=== PATIENT | male | born 1975 | race Caucasian/White ===

== ENCOUNTER 2016-12-05 16:06 | Emergency (ER) | payer BC, OTHER ==
[~2016-12-05] VITALS: Ht 180.3 cm; Wt 86.5 kg
[2016-12-05 16:11] VITALS: Ht 180.3 cm; Wt 86.5 kg
--- NOTE | 2016-12-05 16:59 | ERD ---
ER Documentation Chief Complaint Date/Time DATE: 12/05/16 TIME: 16:52 Chief Complaint SORE THROAT AND RINGING IN EARS X 3 MONTHS HPI 41-year-old male patient with no significant past medical history presents the ED complaining of sore throat and ringing in the ears since 3 months ago. States that he did have a migraine and took Advil relief of his symptoms. Denies any head trauma. Denies any loss of consciousness. Denies any chest pain , shortness of breath, dizziness, abdominal pain, nausea, vomiting. Denies any dysphagia, odynophagia, fever, chills, neck pain. ROS All systems reviewed and are negative except as per history of present illness. Allergies Allergies: Coded Allergies: No Known Allergy (Unverified , 12/05/16) PMhx/Soc Medical and Surgical Hx: pt denies Medical Hx, pt denies Surgical Hx Hx Alcohol Use: No Physical Exam Vitals Vital Signs Date Time Temp Pulse Resp B/P Pulse Ox O2 Delivery O2 Flow Rate FiO2 12/05/16 16:11 99.0 100 20 177/98 99 Physical Exam Const: Drl-[id number]-ycawyecxn, well-nourished. In no acute distress. Head: Atraumatic, normocephalic Eyes: Normal Conjunctiva without injection. No purulent discharge. PERRL. EOMI ENT: Normal external ear. Ear canal without erythema. Tympanic membrane pearly mohamud without effusion or bulging. Nasal canal clear with normal turbinates. Moist oropharynx without tonsillar exudates. Non-erythematous pharynx. Uvula midline. No drooling. No trismus. Neck: Full range of motion. No meningismus. No cervical lymphadenopathy. Resp: Clear to auscultation bilaterally. No wheezing, rhonchi, rales, or crackles. No accessory muscle use. No retractions. Cardio: Regular rate and rhythm. No murmurs, rubs or gallops. Abd: Soft, non tender, non distended. Normal bowel sounds. No palpable masses. No rebound tenderness. No guarding. Skin: No petechiae or rashes Back: No midline tenderness. No CVA tenderness. Ext: No cyanosis, or edema. Neur: Awake and alert. Normal gait and coordination. Cranial nerves II-VII intact. Normal nose to finger exam. Muscle strength 5/5. Sensation intact. Psych: Normal Mood and Affect Procedures/MDM This is a 41-year-old male patient with no significant past medical history presents the ED complaining of sore throat and ringing in the ears that started intermittently 3 months ago. Patient is afebrile and nontoxic-appearing. Patient's blood pressure was noted to be 177/98. Patient's blood pressure was elevated (>120/80) but appears stable without evidence of hypertension emergency or urgency. The patient was counseled about the risks of hypertension and urged to pursue outpatient monitoring and therapy within a week with their primary care physician. Low suspicion for intracranial bleed, meningitis, TIA, stroke, carotid dissection, carotid aneurysm, brain aneurysm, subarachnoid hemorrhage, epidural hematoma, subdural hematoma, or other emergent conditions. This case was discussed with my supervising physician, Dr. Ward who agreed with the management and discharge plan. Follow up with primary care physician in 1-2 days for an ears nose throat specialist. Instructed patient to return to the ED sooner for any worsening symptoms. Patient's questions were answered. Patient understood and agreed with discharge plan. Patient discharged stable. Departure Diagnosis: Primary Impression: Tinnitus Laterality: bilateral Qualified Code: H93.13 - Tinnitus, bilateral Additional Impression: Sore throat Condition: Stable Patient Instructions: When You Have a Sore Throat, Self-Care for Sore Throats, Tinnitus (Ringing in the Ears) Referrals: FREDERICK IQBAL MD, KANNAN TAFOYA,ANIL F[place],ИРИНА PATEL,RADHA MICHAEL M.D., MD,BROOK[place]N IZAGUIRRE,CONSUELO DALE,[place] IRVIN [facility] YOU HAVE RECEIVED A MEDICAL SCREENING EXAM AND THE RESULTS INDICATE THAT YOU DO NOT HAVE A CONDITION THAT REQUIRES URGENT TREATMENT IN THE EMERGENCY DEPARTMENT. FURTHER EVALUATION AND TREATMENT OF YOUR CONDITION CAN WAIT UNTIL YOU ARE SEEN IN YOUR DOCTORS OFFICE WITHIN THE NEXT 1-2 DAYS. IT IS YOUR RESPONSIBILITY TO MAKE AN APPOINTMENT FOR FOLOW-UP CARE. IF YOU HAVE A PRIMARY DOCTOR --you should call your primary doctor and schedule an appointment IF YOU DO NOT HAVE A PRIMARY DOCTOR YOU CAN CALL OUR PHYSICIAN REFERRAL HOTLINE AT IF YOU CAN NOT AFFORD TO SEE A PHYSICIAN YOU CAN CHOSE FROM THE FOLLOWING [facility] [address] [facility] [address] [facility] [address] [facility] [address] [facility] [address] [facility]. [facility] [address] [facility]. [facility] YOU HAVE RECEIVED A MEDICAL SCREENING EXAM AND THE RESULTS INDICATE THAT YOU DO NOT HAVE A CONDITION THAT REQUIRES URGENT TREATMENT IN THE EMERGENCY DEPARTMENT. FURTHER EVALUATION AND TREATMENT OF YOUR CONDITION CAN WAIT UNTIL YOU ARE SEEN IN YOUR DOCTORS OFFICE WITHIN THE NEXT 1-2 DAYS. IT IS YOUR RESPONSIBILITY TO MAKE AN APPOINTMENT FOR FOLOW-UP CARE. IF YOU HAVE A PRIMARY DOCTOR --you should call your primary doctor and schedule and appointment IF YOU DO NOT HAVE A PRIMARY DOCTOR YOU CAN CALL OUR PHYSICIAN REFERRAL HOTLINE AT . IF YOU CAN NOT AFFORD TO SEE A PHYSICIAN YOU CAN CHOSE FROM THE FOLLOWING [facility] INSTITUTIONS: [facility] [address] [place] [address] [facility] [address] [place] [address] [facility] [address] [place] [address] [facility] URGENT CARE/SPECIALTIES Additional Instructions: FOLLOW UP WITH AN EARS NOSE THROAT SPECIALIST TOMORROW.Return to this facility if you are not improving as expected. WAYNE CORONA PA-C December 05, 2016 16:59
== END 2016-12-05 17:21 | disposition home or self-care (01) ==
LOC: FTE 16:06
DX: H93.13 Tinnitus, bilateral (principal)
CPT/HCPCS: 99282